=== PATIENT | male | born 2005 | race Caucasian/White ===

== ENCOUNTER 2023-04-22 08:48 | Emergency (ER) | payer SELFPAY | END 2023-04-22 10:17 | disposition home or self-care (01) | LOC: MADERS 08:48 | DX: H60.91 Unspecified otitis externa, right ear (principal); H61.23 Impacted cerumen, bilateral | CPT/HCPCS: 99282 ==

== ENCOUNTER 2023-09-11 11:58 | Emergency (ER) | payer SELFPAY | END 2023-09-11 13:05 | disposition home or self-care (01) | LOC: MADERS 11:58 | DX: L03.012 Cellulitis of left finger (principal) | CPT/HCPCS: 26010; 87070; 87077; 87205 ==

== ENCOUNTER 2023-09-16 22:51 | Emergency (ER) | payer SELFPAY ==
[2023-09-17] MEDS ORDERED: Bacitracin 1 PK ONE (00:04)
== END 2023-09-17 00:49 | disposition home or self-care (01) ==
LOC: MADERS 22:51
DX: L03.012 Cellulitis of left finger (principal); Z59.7 Insufficient social insurance and welfare support
CPT/HCPCS: 26010; 87070; 87205